=== PATIENT | male | born 1960 | race Caucasian/White ===

== ENCOUNTER 2020-11-05 15:30 | Emergency (ER) | payer OTHER, SELFPAY ==
[2020-11-05 15:35] VITALS: BP 113/76; PULSE 61; RESP 18; TEMP 36.9; O2SAT 97
--- NOTE | 2020-11-05 15:44 | ECG_ITS ---
Measurements Intervals [place] Rate: 58 P: 13 ID: [id number] QRS: 15 QRSD: 106 T: 20 QT: 398 QTc: 392 Interpretive Statements SINUS RHYTHM WITH FIRST DEGREE AV BLOCK INCOMPLETE RIGHT BUNDLE BRANCH BLOCK ABNORMAL ECG Electronically Signed On 11-06-2020 7:29:37 CDT by Miko Ledezma D.O.
--- NOTE | 2020-11-05 15:51 | ED.CHESTPAIN ---
HPI - Chest Pain General Chief Complaint: Chest Pain Stated Complaint: Chest pain Source: patient and RN notes reviewed Mode of arrival: ambulatory Limitations: no limitations History of Present Illness HPI narrative: 60-year-old male presents to the [facility] with complaints of left-sided chest pain, reports it as stabbing at times. Has been intermittent since , 3 days ago. Denies nausea or vomiting. Denies diaphoresis. Denies shortness of breath MD complaint: chest pain Related Data Home Medications Medication Instructions Recorded Confirmed atenolol 50 mg PO DAILY 11/05/20 11/05/20 lisinopril 20 mg PO DAILY 11/05/20 11/05/20 Allergies Allergy/AdvReac Type Severity Reaction Status Date / Time No Known Allergies Allergy Verified 11/05/20 15:49 Review of Systems Review of Systems: All systems reviewed & are unremarkable except as noted in HPI and below Constitutional: Constitutional: Reports no additional constitutional complaints, Denies chills and Denies fever(s) Eyes: Eyes: Reports no additional eye complaints ENT: Reports system reviewed and no additional complaints, except as documented, Denies vertigo, Denies dizziness and Denies sore throat Cardiovascular: Cardiovascular: Reports chest pain, Denies rapid heart rate, Denies radiating jaw, neck or arm pain and Denies slow heart rate Respiratory: Respiratory: Reports no additional respiratory complaints, Denies chest congestion, Denies cough, Denies dyspnea and Denies wheezing Gastrointestinal: Gastrointestinal: Reports no additional gastrointestinal complaints, Denies abdominal pain, Denies nausea and Denies vomiting Musculoskeletal: Musculoskeletal: Reports no additional musculoskeletal complaints Integumentary/Breasts: Skin/Breast: Reports system reviewed and no additional complaints, except as docu Neurologic: Reports system reviewed and no additional complaints, except as documented Psychiatric: Psychiatric: Reports no additional psychiatric complaints Allergic/Immunologic: Allergic/Immunologic: Reports no additional allergic/immunologic complaints [facility] Past Medical History Medical History Hypertension Surgical History Surgical History (Updated 11/05/20 @ 15:57 by Sofia Sanchez) No significant past surgical history Comments At the time of my signature, I reviewed and agree with the nursing past medical, surgical, social, and family history. There is no relevant family history pertinent to the patient complaint. Exam Const: General: healthy appearing, no acute distress and alert Nutritional Appearance: well nourished Orientation/consciousness: patient oriented x3 Limitations: no limitations HENMT: Head: normal to inspection Eyes: Pupils: Equal, round and reactive pupils present Neck: Neck: normal visual inspection, no lymphadenopathy and no meningeal signs Chest: Chest palpation & inspection: normal inspection of the chest Resp: Effort & Inspection: normal respiratory effort and no use of accessory muscles Auscultation: clear to auscultation bilaterally Cardio: Rate: bradycardic GI: GI Palp: Yes Soft to palpation and No Tenderness to palpation present (GI) Back/Spine/Pelvis: Back: no CVA tenderness Skin: General skin exam: normal color Rashes: no rashes Wounds: no wounds Neuro: General: patient oriented x3, moves all extremities, no meningeal signs and no focal motor deficits Speech: normal speech Gait exam (Neuro): Normal gait present Extrem: General: normal to inspection and no pedal edema Psych: Appearance: grossly normal and well kempt Mental Status: mental status grossly normal Affect: normal affect Attitude: cooperative Thought content: Yes Normal thought content present Course Course Emergency Course: Transfer instructions reviewed with patient, as well as provided in writing per nursing staff. The instructions also include specific and stric
== END 2020-11-05 15:52 | disposition short-term general hospital (02) ==
LOC: EXPBETH 15:34
PROVIDERS: Emergency Provider Nurse Practitioner; PCP Physician Assistant
DX: R07.9 Chest pain, unspecified (principal); I10 Essential (primary) hypertension
CPT/HCPCS: 93005; 99213; G0463

== ENCOUNTER 2022-05-16 15:35 | Emergency (ER) | payer OTHER, SELFPAY ==
[2022-05-16 15:44] VITALS: PULSE 66; RESP 18; TEMP 36.4; O2SAT 98
--- NOTE | 2022-05-16 16:20 | ED.URI ---
HPI - URI/Sore Throat General Chief Complaint: Upper Respiratory Infection Stated Complaint: Cough/Sore Throat/Congestion Source: patient and RN notes reviewed History of Present Illness HPI Narrative: 62 yo M presents to urgent care with complaints of congestion, sore throat, [place], and cough x 6-7 days. Pt denies any chest pain, shortness of breath, fevers, chills, or ear pain. Patient has been taking [id number] cold and flu medication without any relief. Related Data Home Medications Medication Instructions Recorded Confirmed atenolol 50 mg tablet 50 mg PO DAILY 11/05/20 05/16/22 losartan 100 mg tablet 100 mg DIRECTED 05/16/22 05/16/22 Allergies Allergy/AdvReac Type Severity Reaction Status Date / Time No Known Allergies Allergy Verified 11/05/20 15:49 Review of Systems Review of Systems: CONSTITUTIONAL: Denies fever, chills, or sweats. EYES: Denies visual changes, redness, or discharge. ENT: Congestion sore throat CARDIOVASCULAR: Denies chest pain, palpitations, or edema. RESPIRATORY: Cough GASTROINTESTINAL: Denies abdominal pain, nausea, vomiting, or diarrhea. GENITOURINARY: Denies dysuria or hematuria. SKIN: Denies rash or itching. MUSCULOSKELETAL: Denies back pain, joint pain, or myalgia. NEUROLOGIC: Headache PMFSH Past Medical History Medical History Hypertension Surgical History Surgical History (Updated 11/05/20 @ 15:57 by Sofia Sanchez, FURNITURE PACKER) No significant past surgical history Comments At the time of my signature, I reviewed and agree with the nursing past medical, surgical, social, and family history. There is no relevant family history pertinent to the patient complaint. Exam Narrative: GENERAL: This is a well-nourished, well-developed patient, in no apparent distress. HEAD: normocephalic, atraumatic. EYES: PERRL. Sclera clear/white. Vision is grossly intact. EARS: External ears normal, auditory canals clear and without drainage, TMs normal without perforation. Hearing grossly intact. NOSE: congestion THROAT: Mucous membranes moist, posterior pharynx clear. NECK: Neck supple, non-tender without lymphadenopathy, masses or thyromegaly. CARDIOVASCULAR: Regular rate and rhythm without murmurs, gallops, or rubs. RESPIRATORY: Clear to auscultation. Breath sounds equal bilaterally. No wheezes, rales, or rhonchi. GASTROINTESTINAL: Abdomen soft, non-tender, nondistended. Bowel sounds are active. No hepato-splenomegaly, or palpable masses. No guarding. SKIN: warm, intact with no suspicious lesions or rash, good texture and turgor. NEURO: awake, alert, and oriented to person, place and time. There were no obvious focal neurologic abnormalities. EXTREMITIES: No clubbing, cyanosis, or edema. No joint tenderness, effusion, or edema noted. BACK: Nontender without deformity or crepitance. No flank tenderness. Course Course Level of Care: Express Care Visit Vital Signs Vital signs: Vital Signs Temperature 97.6 F 05/16/22 15:44 Pulse Rate 66 05/16/22 15:44 Respiratory Rate 18 05/16/22 15:44 Pulse Oximetry 98 05/16/22 15:44 Oxygen Delivery Room Air 05/16/22 15:44 Temperature 97.6 F 05/16/22 15:44 Pulse Rate 66 05/16/22 15:44 Respiratory Rate 18 05/16/22 15:44 Pulse Oximetry 98 05/16/22 15:44 Oxygen Delivery Room Air 05/16/22 15:44 Reviewed MDM - URI/Sore Throat MDM Narrative Medical decision making narrative: Return to urgent care or go to the ER for new or worsening symptoms. Avoid smoking/second-hand smoke. Continue to take Tylenol or Motrin for pain. Increase your Vitamin C intake. Use a humidifier or vaporizer at night. Take Medications as prescribed. Drink plenty of water. 8-10 glasses per day. Use flonase 2 times per day for 5 days then as needed Take mucinex 2 times per day and be sure to take with 8oz of water. Follow up with Primary provider if not getting better. Go to the ER fo
== END 2022-05-16 16:27 | disposition home or self-care (01) ==
PROVIDERS: Emergency Provider Nurse Practitioner Family; PCP Physician Assistant
DX: J32.9 Chronic sinusitis, unspecified (principal); I10 Essential (primary) hypertension
CPT/HCPCS: 87081; 87880; 99213; G0463

== ENCOUNTER 2022-06-13 16:10 | Emergency (ER) | payer OTHER, SELFPAY ==
[2022-06-13 16:14] VITALS: BP 134/92; PULSE 65; RESP 14; TEMP 36.6; O2SAT 98
--- NOTE | 2022-06-13 16:15 | ED.URI ---
HPI - URI/Sore Throat General Chief Complaint: Upper Respiratory Infection Stated Complaint: cough/run down Time Seen by Provider: 06/13/22 16:15 Source: patient and RN notes reviewed History of Present Illness HPI Narrative: Patient is a 62-year-old male who presents to urgent care with complaints of fatigue and cough. Patient was seen at our facility on the 16 of May and given Augmentin. Patient states that ?he felt better for a little bit? but symptoms returned. Patient states he called his doctor today but they wanted him to set up an appointment and he did not have time. Patient states he has been taking Benadryl and Excedrin. States that he does have some wheezing. Patient has continued to smoke. Denies any fever shortness of breath. No other acute complaints. No acute distress noted. Patient aware of the plan of care. Some parts of this dictation were generated by voice recognition software and may contain typographical and/or grammatical inaccuracies. Related Data Home Medications Medication Instructions Recorded Confirmed atenolol 50 mg tablet 50 mg PO DAILY 11/05/20 06/13/22 losartan 100 mg tablet 100 mg DIRECTED 05/16/22 06/13/22 Allergies Allergy/AdvReac Type Severity Reaction Status Date / Time No Known Allergies Allergy Verified 06/13/22 16:21 Review of Systems Review of Systems: CONSTITUTIONAL: Denies fever, chills, or sweats. Reports of fatigue EYES: Denies visual changes, redness, or discharge. ENT: Denies rhinorrhea, congestion, sore throat, or otalgia. CARDIOVASCULAR: Denies chest pain, palpitations, or edema. RESPIRATORY: Reports cough with intermittent wheezing without dyspnea GASTROINTESTINAL: Denies abdominal pain, nausea, vomiting, or diarrhea. GENITOURINARY: Denies dysuria or hematuria. SKIN: Denies rash or itching. MUSCULOSKELETAL: Denies back pain, joint pain, or myalgia. NEUROLOGIC: Denies headache, numbness, or weakness. All other systems reviewed are negative, except as documented in HPI. [facility] Past Medical History Medical History Hypertension Surgical History Surgical History (Updated 11/05/20 @ 15:57 by Sofia Sanchez, RENTAL MANAGEMENT TRAINEE) No significant past surgical history Comments At the time of my signature, I reviewed and agree with the nursing past medical, surgical, social, and family history. There is no relevant family history pertinent to the patient complaint. Exam Narrative: GENERAL: This is a well-nourished, well-developed patient, in no apparent distress. HEAD: normocephalic, atraumatic. EYES: PERRL. Sclera clear/white. Vision is grossly intact. EARS: External ears normal, auditory canals clear and without drainage, TMs normal without perforation. Hearing grossly intact. NOSE: External nose normal with no obvious nasal discharge, nares without redness, no rhinorrhea. THROAT: Mucous membranes moist, posterior pharynx clear. Moderate postnasal drainage NECK: Neck supple, RESPIRATORY: Persistent dry cough noted on exam. Clear to auscultation. Breath sounds equal bilaterally. No wheezes, rales, or rhonchi. SKIN: warm, intact with no suspicious lesions or rash, good texture and turgor. NEURO: awake, alert, and oriented to person, place and time. There were no obvious focal neurologic abnormalities. EXTREMITIES: No clubbing, cyanosis, or edema. Course Course Level of Care: Express Care Visit Vital Signs Vital signs: Vital Signs Temperature 97.8 F 06/13/22 16:14 Pulse Rate 65 06/13/22 16:14 Respiratory Rate 14 06/13/22 16:14 Blood Pressure 134/92 H 06/13/22 16:14 Pulse Oximetry 98 06/13/22 16:14 Oxygen Delivery Room Air 06/13/22 16:14 Temperature 97.8 F 06/13/22 16:14 Pulse Rate 65 06/13/22 16:14 Respiratory Rate 14 06/13/22 16:14 Blood Pressure 134/92 H 06/13/22 16:14 Pulse Oximetry 98 06/13/22 16:14 Oxygen Delivery Room Air 06/13/22 16:14 Reviewed- Patient is in
== END 2022-06-13 16:40 | disposition home or self-care (01) ==
PROVIDERS: Emergency Provider Nurse Practitioner Family; PCP Physician Assistant
DX: J40 Bronchitis, not specified as acute or chronic (principal); I10 Essential (primary) hypertension
CPT/HCPCS: 99213; G0463

== ENCOUNTER 2022-08-17 14:57 | Emergency (ER) | payer OTHER, SELFPAY ==
[2022-08-17 15:02] VITALS: BP 135/86; PULSE 62; RESP 16; TEMP 37.1; O2SAT 100
--- NOTE | 2022-08-17 15:09 | ED.GENADULT ---
HPI - General Adult General Chief complaint: Unspecified Stated complaint: check bp/ doesn't feel well Time Seen by Provider: 08/17/22 15:09 Source: patient Mode of arrival: ambulatory Limitations: no limitations History of Present Illness HPI narrative: 62 y/o male with hx HTN presented for c/o 'not feeling well.' Patient states his son 2 days ago, he is the one who found his son. Patient endorses intermittent left chest pain/pressure sensation. He states he can recreate the pain when he thinks about finding his son. Also reports for several months he has had vision changes, right worse than left, stating it feels a little worse today. He has seen a neurologist for this after his vision changed quickly a few months ago. He denies palpitations, sob, dizziness, diaphoresis, nausea, vomiting, fever or chills. He endorses still eating, drinking water and sleeping well. Admits to drinking alcohol at night to help sleep. Does not have large support system. His PCP is on vacation for a few days. Has talked to his manager construction. Denies SI/HI. Related Data Home Medications Medication Instructions Recorded Confirmed atenolol 50 mg tablet 50 mg PO DAILY 11/05/20 06/13/22 losartan 100 mg tablet 100 mg DIRECTED 05/16/22 06/13/22 penicillin V potassium 500 mg mg 08/17/22 tablet Allergies Allergy/AdvReac Type Severity Reaction Status Date / Time No Known Allergies Allergy Verified 06/13/22 16:21 Review of Systems Review of Systems: CONSTITUTIONAL: Denies body aches, fever, chills, or sweats. EYES: Reports intermittent blurred vision. Denies redness, or discharge. ENT: Denies rhinorrhea, congestion, sore throat, or otalgia. CARDIOVASCULAR: Reports intermittent chest pain, Denies palpitations, or edema. RESPIRATORY: Denies cough or dyspnea. GASTROINTESTINAL: Denies abdominal pain, nausea, vomiting, or diarrhea. GENITOURINARY: Denies dysuria or hematuria. SKIN: Denies rash, itching, or wounds. MUSCULOSKELETAL: Denies back pain, joint pain, or myalgia. NEUROLOGIC: Denies headache, numbness, tingling, or weakness. All systems reviewed & are unremarkable except as noted in HPI and below PMFSH Past Medical History Medical History Hypertension Surgical History Surgical History No significant past surgical history Social History Social History (Updated 08/17/22 @ 15:30 by Cathie Moe APRN) Smoking status: Current every day smoker Alcohol intake: current Comments At time of signature, I have reviewed and agree with nursing past medical, surgical, social and family history unless otherwise noted. Please see nursing chart for further information. There is no relevant family history pertinent to the presenting complaint Exam Narrative: GENERAL: Well-appearing, well-nourished, and in no acute distress. HEAD: Normocephalic, atraumatic. EYES: EOMI. No redness or drainage. Conjunctivae normal. ENT: Mucous membranes pink and moist. No rhinorrhea. CHEST: Clear to auscultation. HEART: Regular rate and rhythm. No murmur appreciated. Normal peripheral pulses. ABDOMEN: Soft, nontender, nondistended, normal active bowel sounds. SKIN: Warm, dry, no rash. Capillary refill normal. Normal skin turgor. NEURO: No focal deficits. Alert and oriented x3. Gait steady. PSYCH: Flat affect. Tearful at times. Course Course Emergency Course: Patient is aware of diagnosis, understands and agrees to treatment plan. Anticipatory guidance given. Patient agrees to follow-up as directed and is aware of reasons to seek care at the emergency department. Portions of this record may have been created with voice recognition software Level of Care: Express Care Visit Vital Signs Vital signs: Vital Signs Temperature 98.8 F 08/17/22 15:02 Pulse Rate 62 08/17/22 15:02 Respiratory Rate 16 08/17/22 15:02
--- NOTE | 2022-08-18 13:51 | ECG_ITS ---
Measurements Intervals [place] Rate: 58 P: 30 [place]: 242 QRS: 29 QRSD: 108 T: 35 QT: 402 QTc: 396 Interpretive Statements SINUS RHYTHM WITH 1ST DEGREE AV BLOCK INCOMPLETE RIGHT BUNDLE BRANCH BLOCK [90+ ms QRS DURATION, TERMINAL R IN V1/V2, 40+ ms S IN I/aVL/V4/V5/V6] ABNORMAL ECG COMPARED TO ECG 11/05/2020 15:46:02 NO SIGNIFICANT CHANGES Electronically Signed On 08-19-2022 9:31:47 CDT by Kevin Palmer M.D.
== END 2022-08-17 16:03 | disposition home or self-care (01) ==
PROVIDERS: Emergency Provider Nurse Practitioner Family; PCP Physician Assistant
DX: F43.20 Adjustment disorder, unspecified (principal); I10 Essential (primary) hypertension; I45.10 Unspecified right bundle-branch block
CPT/HCPCS: 93005; 99213; G0463

== ENCOUNTER 2022-09-09 18:15 | Emergency (ER) | payer OTHER, SELFPAY ==
[2022-09-09 18:18] VITALS: BP 116/73; PULSE 70; RESP 20; TEMP 36.3; O2SAT 98
--- NOTE | 2022-09-09 18:29 | ED.DENTAL ---
HPI - Dental/Oral General Chief complaint: Dental/Oral Stated complaint: Toothache/Toe Injury History of Present Illness HPI Narrative: Patient presents with chronic teeth problems. Patient states he was on antibiotic but did not complete the course of antibiotics and is concerned that he might still have an infection in his left upper tooth. Patient states he had appointment with a dentist for a ground but did not go to his appointment and now he has been placed on a waiting list. Patient states his dentist did call in an antibiotic for him that he has not picked up yet. Patient also has chronic problems with his toe and has had x-rays in the past of this toe. Patient states he has not helped patient x-ray for his toe but has not had his x-ray taken yet. Related Data Home Medications Medication Instructions Recorded Confirmed atenolol 50 mg tablet 50 mg PO DAILY 11/05/20 09/09/22 losartan 100 mg tablet 100 mg DIRECTED 05/16/22 09/09/22 penicillin V potassium 500 mg mg 08/17/22 tablet fluoxetine 20 mg capsule 20 mg PO DAILY 09/09/22 09/09/22 naproxen 500 mg tablet 500 mg PO BID PRN Pain 09/09/22 09/09/22 Allergies Allergy/AdvReac Type Severity Reaction Status Date / Time No Known Allergies Allergy Verified 09/09/22 18:26 Review of Systems Review of Systems: CONSTITUTIONAL: Denies fever, chills, or sweats. EYES: Denies visual changes, redness, or discharge. ENT: Denies rhinorrhea, congestion, sore throat, or otalgia. CARDIOVASCULAR: Denies chest pain, palpitations, or edema. RESPIRATORY: Denies cough or dyspnea. GASTROINTESTINAL: Denies abdominal pain, nausea, vomiting, or diarrhea. GENITOURINARY: Denies dysuria or hematuria. SKIN: Denies rash or itching. MUSCULOSKELETAL: Denies back pain, joint pain, or myalgia. NEUROLOGIC: Denies headache, numbness, or weakness. PSYCHIATRIC: Denies anxiety or depression. [facility] Past Medical History Medical History Hypertension Surgical History Surgical History No significant past surgical history Social History Social History (Updated 06/03/23 @ 15:30 by ARRON Silva Smoking status: Current every day smoker Alcohol intake: current Comments At time of signature, agree with nursing past medical, surgical, social and family history. There is no relevant family history pertinent to the presenting complaint Exam Narrative: GENERAL: Well-appearing, well-nourished, and in no acute distress. HEAD: Normocephalic, atraumatic. EYES: PERRLA and EOMI. ENT: Nares clear, no rhinorrhea or epistaxis. Mucous membranes moist. aphthous ulcer to left upper gum NECK: Supple. CHEST: Clear to auscultation. No respiratory distress. HEART: Regular rate and rhythm. No murmur heard. Normal peripheral pulses. ABDOMEN: Soft, nontender, nondistended, normal active bowel sounds. EXTREMITIES: Normal range of motion. No edema.NORMAL DP PULSE, NORMAL CAP REFILL. NORMAL SENSATION. NVI. NO TENDERNESS TO FOOT SENSATION NVI NORMAL DORSALIS PEDIS PULSE. NORMAL MOVEMETN OF ALL TOES. NORMAL CAPILLARY REFILL. NORMAL SKIN COLOR. NO SKIN LESIONS SKIN TNTACT NO CALF PAIN NO CALF TENDERNESS NOCALF SWELLING NORMAL ROM OF KNEE.KIN INTACT. NORMAL DP PULSE, NORMAL CAP REFILL. NORMAL SENSATION. SKIN: Warm, dry, no rash. NEURO: No focal deficits. Alert and oriented x3. [place] Coma Scale Eye Opening: Spontaneous 4 [place] Coma Scale Motor: Obeys Commands 6 [place] Coma Scale Verbal: Oriented 5 [place] Coma Scale Total 15 Course Course Level of Care: Express Care Visit Vital Signs Vital signs: Vital Signs Temperature 36.3 C L 09/09/22 18:18 Pulse Rate 70 09/09/22 18:18 Respiratory Rate 20 09/09/22 18:18 Blood Pressure 116/73 09/09/22 18:18 Pulse Oximetry 98 09/09/22 18:18 Oxygen Delivery Room Air 09/09/22 18:18 Temperature 36.3 C L
== END 2022-09-09 18:36 | disposition home or self-care (01) ==
PROVIDERS: Emergency Provider Nurse Practitioner Family; PCP Physician Assistant
DX: K05.10 Chronic gingivitis, plaque induced (principal); K12.0 Recurrent oral aphthae; M79.9 Soft tissue disorder, unspecified; I10 Essential (primary) hypertension
CPT/HCPCS: 99213; G0463

== ENCOUNTER 2022-09-14 18:54 | Emergency (ER) | payer OTHER, SELFPAY ==
--- NOTE | ~2022-09-14 | XR_ITS ---
EXAMINATION: XR toe 2nd RT min 2V DATE: 09/14/2022 19:20 INDICATION: Right second toe injury after kicking an object 1 month prior TECHNIQUE: Dorsal plantar, lateral and 2 oblique views of the right second toe were obtained. COMPARISON: 03/09/2019 FINDINGS: Negligible displacement of a small fracture fragment along the dorsal margin of the base of the right second middle phalanx <1 mm lucent fracture gap at the articular cortex. No other fractures identifi ed. Bunion with mild hypertrophic change at the medial head of the first metatarsal. 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 IMPRESSION: Small minimally displaced intra-articular fracture along the dorsal margin of the base of the right s econd middle phalanx. Reviewed, dictated and finalized at location A. IMPRESSION: Small minimally displaced intra-articular fracture along the dorsal margin of t he base of the right second middle phalanx.
[2022-09-14 19:00] VITALS: BP 120/85; PULSE 67; RESP 20; TEMP 36.2; O2SAT 96
--- NOTE | 2022-09-14 19:07 | ED.GENADULT ---
HPI - General Adult General Chief complaint: Extremity Injury, Lower Stated complaint: right toe 2nd toe pain Time Seen by Provider: 09/14/22 19:07 Source: patient, RN notes reviewed and old records reviewed Mode of arrival: ambulatory Limitations: no limitations History of Present Illness HPI narrative: 62-year-old male presents to the [facility] with continued pain in the right 2nd toe. Reports that he thinks he broke it 3-4 weeks ago after kicking something. Swelling, bruising noted. Minimal range of motion but sensation intact with capillary refill under 2 seconds. Tenderness at the IP and and TP joints Has not seek treatment. No treatment prior to arrival. Onset (ago): week(s) (3-4) Related Data Home Medications Medication Instructions Recorded Confirmed atenolol 50 mg tablet 50 mg PO DAILY 11/05/20 09/14/22 losartan 100 mg tablet 100 mg DIRECTED 05/16/22 09/14/22 fluoxetine 20 mg capsule 20 mg PO DAILY 09/09/22 09/14/22 naproxen 500 mg tablet 500 mg PO BID PRN Pain 09/09/22 09/14/22 Allergies Allergy/AdvReac Type Severity Reaction Status Date / Time No Known Allergies Allergy Verified 09/14/22 19:02 Review of Systems Review of Systems: All systems reviewed & are unremarkable except as noted in HPI and below Constitutional: Constitutional: Reports no additional constitutional complaints Eyes: Eyes: Reports no additional eye complaints ENT: Reports system reviewed and no additional complaints, except as documented Cardiovascular: Cardiovascular: Reports no additional cardiovascular complaints, Denies chest pain and Denies dyspnea Respiratory: Respiratory: Reports no additional respiratory complaints, Denies chest congestion, Denies cough and Denies dyspnea Gastrointestinal: Gastrointestinal: Reports no additional gastrointestinal complaints, Denies abdominal pain, Denies nausea and Denies vomiting Musculoskeletal: Musculoskeletal: Reports as per HPI Integumentary/Breasts: Skin/Breast: Reports system reviewed and no additional complaints, except as docu Neurologic: Reports system reviewed and no additional complaints, except as documented Psychiatric: Psychiatric: Reports no additional psychiatric complaints Allergic/Immunologic: Allergic/Immunologic: Reports no additional allergic/immunologic complaints PMFSH Past Medical History Medical History Hypertension Surgical History Surgical History No significant past surgical history Social History Social History Smoking status: Current every day smoker Alcohol intake: current Comments At the time of my signature, I reviewed and agree with the nursing past medical, surgical, social, and family history. There is no relevant family history pertinent to the patient complaint. Exam Const: General: cooperative, healthy appearing, comfortable, no acute distress, well developed, alert and well nourished Nutritional Appearance: well nourished Orientation/consciousness: patient oriented x3 Limitations: no limitations HENMT: Head: normal to inspection Ears: hearing grossly normal bilaterally and external ears normal Face/Nose/Sinus: Normal external nose present, Normal nares present, Normal nasal mucous membranes and turbinates present and normal facial exam Face and sinus: normal facial exam Eyes: General: appearance normal, both eyes and all related structures Alignment and Position: alignment normal Periorbital: periorbital findings normal Pupils: Equal, round and reactive pupils present EOM: EOMs intact bilaterally Neck: Neck: normal visual inspection, full ROM, no lymphadenopathy and no meningeal signs Chest: Chest palpation & inspection: normal inspection of the chest Resp: Effort & Inspection: normal respiratory effort and able to speak in complete sentences Auscultati
== END 2022-09-14 19:42 | disposition home or self-care (01) ==
PROVIDERS: Emergency Provider Nurse Practitioner
DX: S92.522A Displaced fracture of middle phalanx of left lesser toe(s), initial encounter for closed fracture (principal); X58.XXXA Exposure to other specified factors, initial encounter; I10 Essential (primary) hypertension; F17.200 Nicotine dependence, unspecified, uncomplicated
CPT/HCPCS: 73660; 99213; G0463

== ENCOUNTER 2022-12-27 13:11 | Emergency (ER) | payer OTHER, SELFPAY ==
[2022-12-27 13:19] VITALS: BP 129/87; PULSE 60; RESP 18; TEMP 36.8; O2SAT 98
--- NOTE | 2022-12-27 13:23 | ED.DENTAL ---
HPI - Dental/Oral General Stated complaint: tooth pain History of Present Illness HPI Narrative: PATIENT PRESENTS WITH CHRONIC TEETH PROBLEMS. PATIENT STATES HE HAD A TOOTH PULLED NOT TOO LONG AGO AND NOW HE HAS PAIN TO A TOOTH THAT IS ADJACENT TO 1 THAT WAS PULLED. NO TROUBLE SWALLOWING NO DROOLING. NO HIGH FEVERS. PATIENT STATES HIS PCP IS OUT OF TOWN AND UNABLE TO GET INTO HIS [facility] FOR A COUPLE WEEKS. Related Data Home Medications Medication Instructions Recorded Confirmed atenolol 50 mg tablet 50 mg PO DAILY 11/05/20 12/27/22 losartan 100 mg tablet 100 mg DIRECTED 05/16/22 12/27/22 fluoxetine 20 mg capsule 20 mg PO DAILY 09/09/22 12/27/22 Allergies Allergy/AdvReac Type Severity Reaction Status Date / Time No Known Allergies Allergy Verified 12/27/22 13:15 Review of Systems Review of Systems: CONSTITUTIONAL: DENIES FEVER, CHILLS, OR SWEATS. EYES: DENIES VISUAL CHANGES, REDNESS, OR DISCHARGE. ENT: DENIES RHINORRHEA, CONGESTION, SORE THROAT, OR OTALGIA. NO FEVER. NO JAW SWELLING. NO NECK SWELLING. NO LIMITATION WITH SPEAKING OR SWALLOWING. HAS A HISTORY OF DENTAL CARIES. HAS NOT SEEN A DENTIST RECENTLY. CARDIOVASCULAR: DENIES CHEST PAIN, PALPITATIONS, OR EDEMA. RESPIRATORY: DENIES COUGH OR DYSPNEA. GASTROINTESTINAL: DENIES ABDOMINAL PAIN, NAUSEA, VOMITING, OR DIARRHEA. GENITOURINARY: DENIES DYSURIA OR HEMATURIA. SKIN: DENIES RASH OR ITCHING. MUSCULOSKELETAL: DENIES BACK PAIN, JOINT PAIN, OR MYALGIA. NEUROLOGIC: DENIES HEADACHE, NUMBNESS, OR WEAKNESS. PSYCHIATRIC: DENIES ANXIETY OR DEPRESSION. PMFSH Past Medical History Medical History Hypertension Surgical History Surgical History No significant past surgical history Social History Social History Smoking status: Current every day smoker Alcohol intake: current Comments AT TIME OF SIGNATURE, AGREE WITH NURSING PAST MEDICAL, SURGICAL, SOCIAL AND FAMILY HISTORY. THERE IS NO RELEVANT FAMILY HISTORY PERTINENT TO THE PRESENTING COMPLAINT Exam Narrative: GENERAL: WELL-APPEARING, WELL-NOURISHED, AND IN NO ACUTE DISTRESS. HEAD: NORMOCEPHALIC, ATRAUMATIC. EYES: PERRLA AND EOMI. ENT: NARES CLEAR, NO RHINORRHEA OR EPISTAXIS. MUCOUS MEMBRANES MOIST. NO MEGAN APICAL SWELLING, TOOTH TENDER TO PALPATION. NO FACIAL SWELLING. NO TRISMUS. ABLE TO OPEN MOUTH FULLY. NO NECK SWELLING OR JINNY'S ANGINA. NO ABSCESS TO BE DRAINED. NO DROOLING, TRISMUS, FACIAL ASYMMETRY OR SIGNIFICANT NECK SWELLING TOOTH NUMBER 20 NECK: SUPPLE. CHEST: CLEAR TO AUSCULTATION. NO RESPIRATORY DISTRESS. HEART: REGULAR RATE AND RHYTHM. NO MURMUR HEARD. NORMAL PERIPHERAL PULSES. ABDOMEN: SOFT, NONTENDER, NONDISTENDED, NORMAL ACTIVE BOWEL SOUNDS. EXTREMITIES: NORMAL RANGE OF MOTION. NO EDEMA. SKIN: WARM, DRY, NO RASH. NEURO: NO FOCAL DEFICITS. ALERT AND ORIENTED X3. CHYNA COMA SCALE EYE OPENING: SPONTANEOUS 4 CHYNA COMA SCALE MOTOR: OBEYS COMMANDS 6 CHYNA COMA SCALE VERBAL: ORIENTED 5 CHYNA COMA SCALE TOTAL 15 Course Course Level of Care: Express Care Visit Vital Signs Vital signs: Vital Signs Temperature 36.8 C 12/27/22 13:19 Pulse Rate 60 12/27/22 13:19 Respiratory Rate 18 12/27/22 13:19 Blood Pressure 129/87 12/27/22 13:19 Pulse Oximetry 98 12/27/22 13:19 Oxygen Delivery Room Air 12/27/22 13:19 Temperature 36.8 C 12/27/22 13:19 Pulse Rate 60 12/27/22 13:19 Respiratory Rate 18 12/27/22 13:19 Blood Pressure 129/87 12/27/22 13:19 Pulse Oximetry 98 12/27/22 13:19 Oxygen Delivery Room Air 12/27/22 13:19 Discharge Plan Discharge Clinical Impression: Dental abscess, Dental caries, Chronic dental infection Patient Disposition: Home, Self-Care Condition: Stable Instructions: Antibiotic Form, Mouth Care (ED) Additional Instructions: AV
== END 2022-12-27 13:30 | disposition home or self-care (01) ==
PROVIDERS: Emergency Provider Nurse Practitioner Family; PCP Physician Assistant
DX: K04.7 Periapical abscess without sinus (principal); K02.9 Dental caries, unspecified; F17.210 Nicotine dependence, cigarettes, uncomplicated; I10 Essential (primary) hypertension; Z79.899 Other long term (current) drug therapy
CPT/HCPCS: 99213; G0463

== ENCOUNTER 2023-12-16 13:19 | Emergency (ER) | payer OTHER, SELFPAY ==
--- NOTE | ~2023-12-16 | XR_ITS ---
EXAMINATION: XR humerus RT DATE: 12/16/2023 14:31 INDICATION: Right humeral pain post injury TECHNIQUE: AP and lateral views of the right humerus were obtained on overlapping proximal and distal images. COMPARISON: Right shoulder radiographs dated 03/16/2022 FINDINGS: Bone alignment is normal. No fracture. Mild osteoarthritis at the right elbow, glenohumeral and acrom ioclavicular joints. Right lung is clear with no pleural effusion or pneumothorax. Soft tissues are u nremarkable. IMPRESSION: 1. 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 No acute osseous abnormality. Reviewed, dictated and finalized at location A.
[2023-12-16 13:34] VITALS: BP 124/81; PULSE 63; RESP 20; TEMP 36.5; O2SAT 98
--- NOTE | 2023-12-16 14:34 | ED.UPPEXIN ---
HPI - Extremity Injury (Upper) General Chief Complaint: Extremity Injury, Upper Stated Complaint: right upper arm swelling/black and blue Time Seen by Provider: 12/16/23 14:12 Source: patient, RN notes reviewed and old records reviewed Mode of arrival: ambulatory Limitations: no limitations History of Present Illness HPI narrative: 63-year-old male to Express Care with complaint of right upper arm pain, swelling, bruising. Patient reports that last he picked up a heavy tool box with his right arm and proceeded to work underneath his vehicle, utilizing a wrench. Patient states that he started experiencing pain in his right biceps area and could not finish the work and had to have a friend finish it for him. Patient reports increased discomfort over the past several days as well as weakness in the right upper extremity. Patient denies prior injury, surgery, numbness, tingling, pertinent medical history. Related Data Home Medications Medication Instructions Recorded Confirmed atenolol 50 mg tablet 50 mg PO DAILY 11/05/20 12/16/23 losartan 100 mg tablet 100 mg DIRECTED 05/16/22 12/16/23 Allergies Allergy/AdvReac Type Severity Reaction Status Date / Time No Known Allergies Allergy Verified 12/27/22 13:15 Review of Systems Review of Systems: All systems reviewed & are unremarkable except as noted in HPI and below Constitutional: Constitutional: Reports no additional constitutional complaints Eyes: Eyes: Reports no additional eye complaints ENT: Reports system reviewed and no additional complaints, except as documented Cardiovascular: Cardiovascular: Reports no additional cardiovascular complaints, Denies chest pain and Denies dyspnea Respiratory: Respiratory: Reports no additional respiratory complaints, Denies cough and Denies dyspnea Musculoskeletal: Musculoskeletal: Reports as per HPI and Reports other ( right upper arm pain, bruising) Neurologic: Reports system reviewed and no additional complaints, except as documented Psychiatric: Psychiatric: Reports no additional psychiatric complaints [facility] Past Medical History Medical History Hypertension Surgical History Surgical History No significant past surgical history Social History Social History Smoking status: Current every day smoker Alcohol intake: current Comments At the time of my signature, I reviewed and agree with the nursing past medical, surgical, social, and family history. There is no relevant family history pertinent to the patient complaint. Exam Const: General: cooperative, healthy appearing, comfortable, no acute distress, alert and well nourished Nutritional Appearance: well nourished Orientation/consciousness: patient oriented x3 Limitations: no limitations HENMT: Head: normal to inspection Ears: external ears normal Face/Nose/Sinus: Normal external nose present, Normal nares present, normal facial exam, No erythema and No edema Face and sinus: normal facial exam, no erythema and no edema Mouth: Yes Normal oral and palatal mucosa present Eyes: General: appearance normal, both eyes and all related structures Neck: Neck: normal visual inspection, full ROM and no meningeal signs Chest: Chest palpation & inspection: normal inspection of the chest Resp: Effort & Inspection: normal respiratory effort and able to speak in complete sentences Cardio: Jugular venous distension: no JVD Rate: regular rate Rhythm: regular rhythm Back/Spine/Pelvis: Cervical Spine: cervical ROM normal Skin: General skin exam: normal color, no rashes or lesions noted and turgor normal Neuro: General: patient oriented x3, gait normal, moves all extremities and no meningeal signs Speech: normal speech Gait exam (Neuro): Normal gait present Extrem: General
== END 2023-12-16 15:06 | disposition home or self-care (01) ==
PROVIDERS: Emergency Provider Nurse Practitioner Family; PCP Physician Assistant
DX: S46.211A Strain of muscle, fascia and tendon of other parts of biceps, right arm, initial encounter (principal); X50.0XXA Overexertion from strenuous movement or load, initial encounter; F17.200 Nicotine dependence, unspecified, uncomplicated; I10 Essential (primary) hypertension
CPT/HCPCS: 73060; 99213; G0463